=== PATIENT | female | born 1990 | race Caucasian/White ===

== ENCOUNTER 2023-07-23 08:28 | Emergency (ER) | payer BC, MEDICAID ==
[2023-07-23] MEDS ORDERED: Iopamidol 612 MG/ML 100 ML Bottle IVPUSH ONE (09:01)
[2023-07-23] MEDS ORDERED: Sodium Chloride 0.9% 1,000 ML IV ONE (10:59)
[2023-07-23] MEDS ORDERED: Ciprofloxacin in D5W 400 MG in Premix Bag 1 BAG IV ONE ×2 (11:00)
[2023-07-23] MEDS ORDERED: Take Home: Ciprofloxacin HCl 500 MG, 6 Tab Pack PO ONE (11:02)
== END 2023-07-23 12:50 | disposition home or self-care (01) ==
LOC: LL.ED 08:28
DX: K57.92 Diverticulitis of intestine, part unspecified, without perforation or abscess without bleeding (principal); Z88.0 Allergy status to penicillin; Z88.2 Allergy status to sulfonamides
CPT/HCPCS: 74177; 96365; 99284; 99284-25; A9270-GY; J0744; J7030; Q9967